=== PATIENT | male | born 1955 | race Caucasian/White ===

== ENCOUNTER 2017-01-10 12:21 | Emergency (ER) | payer OTHER ==
--- NOTE | 2017-01-10 12:52 | EDPHY ---
H & P Time Seen by Provider: 01/10/17 12:31 HPI/ROS: CHIEF COMPLAINT: Back pain HISTORY OF PRESENT ILLNESS: This 61-year-old man has been having intermittent bilateral foot pain for months and had an MRI by Dr. Burk on September 12 of last year. At that time he was seen to have mild spinal stenosis at L4- 5 as well as foraminal impingement on the right-sided L3-L4 level with a disc protrusion within the nerve foramen. Patient was lifting boxes to ship things to [place] to his daughter on a week ago and the next morning on Thursday felt like he had a knife sticking into his back on the right side. He saw his primary care physician this because of pain and was started on oral prednisone 40 mg a day as well as Flexeril and oxycodone. Patient's pain radiates down the front of his leg into his foot. Today he feels like he was having difficulty walking and getting dressed. He states that he feels weaker in the leg but can still feel his foot okay. REVIEW OF SYSTEMS: Abdomen: no vomiting, diarrhea, abdominal pain Musculoskeletal: HPI Skin: no rash Neuro: No incontinence Constitutional: no fever : no urinary symptoms A comprehensive 10 point review of systems is otherwise negative aside from elements mentioned in the history of present illness. PAST MEDICAL HISTORY: Polymyalgia rheumatica, bleeding ulcer, rheumatoid arthritis and neuropathy. Previous C5 through 7 ACDF. General Appearance: Alert and conversant, cooperative. Gastrointestinal: Abdomen is soft and non tender. No rebound or guarding and no pulsatile mass. Neurological: Alert and oriented x3. Normally conversant. 5/5 motor in both lower extremities. 5/5 extension of hallucis longus. Normal plantar flexion. Toes downgoing bilaterally. Patellar and ankle reflexes 1+ bilateral and symmetric. Straight leg raising negative bilaterally. Patient can stand on both toes and both heels. Normal sensation to light touch in the perineal area. No foot drop. Normal dorsiflexion. Ambulatory w/o antalgic gait. Skin: Warm and dry, no rashes. Musculoskeletal: No lumbar spine tenderness. Emergency Department course/MDM: Patient does not have objective neurologic deficit. Today he took 40 mg oral prednisone and a single 5 mg oxycodone. Consultation with his spine surgeon. 1342: Discussed in detail with his spine surgeon Dr. Burk. Includes but not limited to symptoms, physical exam and emergency department evaluation, MRI from August. She recommends continuing with steroids and muscle relaxants and pain medications. Office follow-up on Thursday. No surgical intervention and no repeat imaging. Discussion and plan discussed with the patient. He has at least prescription for 30 Percocet and muscle relaxant remaining. Will continue steroids and follow up on Thursday. He states he is comfortable with this plan Smoking Status: Never smoked Constitutional: Initial Vital Signs Temperature (C) 36.4 C 01/10/17 12:31 Heart Rate 88 01/10/17 12:31 Respiratory Rate 22 H 01/10/17 12:31 Blood Pressure 113/97 H 01/10/17 12:31 O2 Sat (%) 95 01/10/17 12:31 O2 Delivery Mode Room Air Allergies/Adverse Reactions: No Known Allergies Allergy (Verified 01/10/17 12:26) Home Medications: Medication Instructions Recorded Tamsulosin HCl [Flomax 0.4 MG (*)] 0.4 mg PO DAILY #6 cap 02/28/14 Esomeprazole Magnesium [Nexium] 20 mg PO BID 03/01/14 Herbals/Supplements -Info Only 1 ea PO DAILY 03/01/14 traMADol [Ultram 50 mg (*)] 100 mg PO BID PRN 03/01/14 Pregabalin [Lyrica 75mg (*)] 75 mg PO BID #0 cap 03/04/14 predniSONE 5 mg PO BID #0 tab 03/04/14 Allopurinol 01/10/17 Cyclobenzaprine 01/10/17 DULoxetine 01/10/17 FOLIC ACID 01/10/17 Methotrexate 01/10/17 Oxycodon-Acetaminophen 2.5-325 01/10/17 Pot Citrate-Citric Acid Packet 01/10/17 RAPAFLO 01/10/17 Medical Decision Making Differential Diagnosis: Differential considered including but not limited to lumbar radiculopathy, herniated disc, spinal stenosis, epidural abscess, multiple sclerosis. Consult/Admit Bed Type: [place] [id number] Departure - Departure Disposition: Home, Routine, Self-Care Clinical Impression: Lumbar radiculopathy, acute Back pain Qualifiers: Back pain location: low back pain Chronicity: acute Back pain laterality: right Sciatica presence: with sciatica Sciatica laterality: sciatica of right side Qualified Code(s): M54.41 - Lumbago with sciatica, right side Condition: Good Instructions: Lumbar Radiculopathy (ED) Additional Instructions: Continue medications as prescribed. Return for worsening or severe pain or weakness or incontinence. Please see your spine surgeon on Thursday morning. Call when the office opens for appointment and her office will be expecting you. Referrals: Hima Stanley MD [Primary Care Provider] - As per Instructions Faith Burk MD [Medical Doctor] - 01/12/17
[2017-01-10 13:57] VITALS: BP 130/88; PULSE 72; RESP 20; TEMP 98.2; O2SAT 98
== END 2017-01-10 14:00 | disposition home or self-care (01) ==
DX: M54.41 Lumbago with sciatica, right side (principal); M54.16 Radiculopathy, lumbar region

== ENCOUNTER → 2017-01-23 | Outpatient (CLI) | payer OTHER | LOC: BMCIMAGING 11:30 | PROVIDERS: ATTEND Internal Medicine | DX: J40 Bronchitis, not specified as acute or chronic (principal); R06.00 Dyspnea, unspecified ==

== ENCOUNTER 2017-02-02 19:13 | Observation (INO) | payer OTHER ==
[2017-02-02] MEDS ORDERED: KETOROLAC 30 MG/1 ML SDV IVP ONE (19:51)
[2017-02-02] MEDS ORDERED: ONDANSETRON 4 MG/2 ML VIAL IVP ONE (19:51)
[2017-02-02] MEDS ORDERED: NS 500 ML IV ONE (19:51)
[2017-02-02] MEDS ORDERED: HYDROmorphONE/DILAUDID 1 MG/ML SYR IVP ONE (19:51)
[2017-02-02] MEDS ORDERED: methylPREDNISolone SOD SUCC 125 MG/2 ML VIAL IVP ONE (19:52)
--- NOTE | 2017-02-02 19:55 | EDPHY ---
H & P Time Seen by Provider: 02/02/17 19:36 HPI/ROS: CHIEF COMPLAINT: Back pain HISTORY OF PRESENT ILLNESS: Patient is a 61-year-old male who presents to the emergency department with right lower back pain. He has been diagnosed previously with a disc herniation, spinal stenosis and sciatica. This episode has been going on for about 30 days. He has a scheduled injection on . His pain is worsened worsening him to the emergency department. This pain radiates to his right buttock. It does not extend down the leg. He denies incontinence of urine or stool. No fevers or chills. Patient feels as though his right lower extremity is slightly weaker than the left. No numbness or tingling. REVIEW OF SYSTEMS: My complete review of systems is negative except as mentioned in the HPI. Past Medical/Surgical History: Includes back pain, disc herniation, polymyalgia, th arthritis, peptic ulcer disease, neuropathy, Sjogren's syndrome, kidney stone Smoking Status: Never smoked Physical Exam: Vitals noted GENERAL: Well-appearing, in no acute distress, alert. HEENT: Eyes normal to inspection, normal pharynx, no signs of dehydration. NECK: No thyromegaly, no lymphadenopathy, supple. RESPIRATORY: Clear to auscultation bilaterally, no rales, rhonchi or wheezing. CVS: Regular rate and rhythm, no rubs, murmurs, or gallops. ABDOMEN: Soft, nontender, nondistended, no organomegaly. BACK: Normal to inspection, no CVA tenderness. No spinal tenderness to palpation. Negative leg raise bilaterally. SKIN: Normal color, no rash, warm, dry. No pallor. EXTREMITIES: No pedal edema, no calf tenderness, no Homans sign or cords, no joint swelling. NEURO/PSYCH: Alert and oriented, normal mood and affect, normal motor sensory exam. Constitutional: Initial Vital Signs Temperature (C) 37 C 02/02/17 19:16 Heart Rate 87 02/02/17 19:16 Respiratory Rate 18 02/02/17 19:16 Blood Pressure 152/92 H 02/02/17 19:16 O2 Sat (%) 94 02/02/17 19:16 O2 Delivery Mode Room Air O2 (L/minute) 2 Allergies/Adverse Reactions: No Known Allergies Allergy (Verified 02/02/17 19:21) Home Medications: Medication Instructions Recorded Esomeprazole Magnesium [Nexium] 20 mg PO BID 03/01/14 Herbals/Supplements -Info Only 1 ea PO DAILY 03/01/14 traMADol [Ultram 50 mg (*)] 100 mg PO BID PRN 03/01/14 Pregabalin [Lyrica 75mg (*)] 75 mg PO BID #0 cap 03/04/14 Allopurinol 01/10/17 Cyclobenzaprine 01/10/17 DULoxetine 01/10/17 FOLIC ACID 01/10/17 Methotrexate 01/10/17 Pot Citrate-Citric Acid Packet 01/10/17 RAPAFLO 01/10/17 Medical Decision Making ED Course/Re-evaluation: In the emergency department an IV was placed. Patient was given Dilaudid 0.5 mg IV for pain, Zofran 4 mg IV for nausea, Toradol 30 mg IV for pain, and Solu- Medrol 125 mg IV for pain. I rechecked the patient. He still continued to have back pain. It radiated down his right buttock to his right leg. She had no weakness or numbness on repeat exam. Patient was given Valium 5 mg IV. Because the patient has been given numerous pain medications and still has significant back pain he will be admitted for further treatment and observation. I discussed the case with the hospitalist service. Differential Diagnosis: My differential includes but is not limited to disc herniation, sciatica, low back strain, epidural abscess, epidural mass. I do not feel the patient is having a neuro surgical emergency. I doubt cauda equina syndrome. - Data Points Medications Given: Discontinued Medications Hydromorphone HCl (Dilaudid) 0.5 mg IVP EDNOW ONE Stop: 02/02/17 19:52 Last Admin: 02/02/17 20:32 Dose: 0.5 mg Sodium Chloride (Ns) 500 mls @ 0 mls/hr IV ONCE ONE PRN Reason: Wide Open Stop: 02/02/17 19:52 Last Admin: 02/02/17 20:33 Dose: 500 mls Ketorolac Tromethamine (Toradol) 30 mg IVP EDNOW ONE Stop: 02/02/17 19:52 Last Admin: 02/02/17 20:33 Dose: 30 mg Methylprednisolone Sodium Succinate (Solu-Medrol) 125 mg IVP EDNOW ONE Stop: 02/02/17 19:53 Last Admin: 02/02/17 20:33 Dose: 125 mg Ondansetron HCl (Zofran) 4 mg IVP EDNOW ONE Stop: 02/02/17 19:52 Last Admin: 02/02/17 20:34 Dose: 4 mg Departure - Departure Disposition: [facility] Inpatient Acute Clinical Impression: Back pain Qualifiers: Back pain location: low back pain Chronicity: acute Back pain laterality: right Sciatica presence: with sciatica Sciatica laterality: sciatica of right side Qualified Code(s): M54.41 - Lumbago with sciatica, right side Condition: Good Referrals: Hima Stanley MD [Primary Care Provider] - As per Instructions
[2017-02-02] MEDS ORDERED: DIAZEPAM 10 MG/2 ML SYR ONE (21:21)
[2017-02-02] MEDS ORDERED: DIAZEPAM 10 MG/2 ML SYR IVP ONE (21:31)
[2017-02-02 21:48] LABS: ANION GAP 9 mEq/L (8-16); CALCIUM 9.9 mg/dL (8.5-10.4); CARBON DIOXIDE 27 mEq/l (22-31); CHLORIDE 102 mEq/L (97-110); CREATININE 1.1 mg/dL (0.7-1.3); GLOMERULAR FILTRATION RATE > 60; GLUCOSE 89 mg/dL (70-100); POTASSIUM 4.5 mEq/L (3.5-5.2); SODIUM 138 mEq/L (134-144)
[2017-02-02 21:49] LABS: % IMMATURE GRANULYOCYTES 0.2 % (0.0-1.1); ABSOLUTE IMMATURE GRANULOCYTES 0.02 10^3/uL (0.00-0.10); ADD DIFF? NO; ADD MORPH? NO; ADD SCAN? NO; ATYPICAL LYMPHOCYTE FLAG 0 (0-99); FRAGMENT RBC FLAG 0 (0-99); HEMATOCRIT 44.2 % (40.0-51.0); HEMOGLOBIN 14.8 g/dL (13.7-17.5); LEFT SHIFT FLG 0 (0-99); LIPEMIA HEMOLYSIS FLAG 80 (0-99); MEAN CELL HEMOGLOBIN 30.6 pg (27.9-34.1); MEAN CELL HEMOGLOBIN CONCENTR. 33.5 g/dL (32.4-36.7); MEAN CELL VOLUME 91.3 fL (81.5-99.8); MEAN PLATELET VOLUME 10.1 fL (8.7-11.7); PLATELET CLUMPS FLAG 0 (0-99); PLATELET COUNT 435 10^3/uL (150-400); RED BLOOD CELL COUNT 4.84 10^6/uL (4.40-6.38); RED CELL DISTRIBUTION WIDTH 15.9 % (11.5-15.2)
[2017-02-02] MEDS ORDERED: ONDANSETRON DISINTEGRATING 4 MG TAB PO PRN (23:09)
[2017-02-02] MEDS ORDERED: ONDANSETRON 4 MG/2 ML VIAL IVP PRN (23:09)
[2017-02-02] MEDS ORDERED: DIAZEPAM 5 MG TAB PO PRN (23:10)
[2017-02-02] MEDS ORDERED: HYDROmorphONE/DILAUDID 1 MG/ML SYR IVP PRN (23:10)
[2017-02-02] MEDS: ACETAMINOPHEN 500 MG TAB PO SCH (23:32)
[2017-02-02] MEDS: oxyCODONE IR 5 MG TAB PO PRN (23:34)
[2017-02-03] MEDS: SENNOSIDES 17.6 MG/10 ML UDL PO SCH ×2 (00:02→08:33)
--- NOTE | 2017-02-03 00:23 | GHP ---
[f rep st] HISTORY AND PHYSICAL DATE OF ADMISSION: 02/02/2017 CHIEF COMPLAINT: Intractable back pain. HISTORY OF PRESENT ILLNESS: The patient is a 61-year-old male with a history sciatica, bulged disk and multilevel lumbar degenerative disk disease at L2-L3 and L4-L5. He is followed by Dr. Dailey and had MRI 01/28/17 that showed L3 -4 annular bulge to the right causing mild central canal stenosis and moderate- severe right foraminal narrowing. Has been doing physical therapy for the last 3 weeks and has noted weakness of right leg. Was scheduled for a steroid injection at [facility] on this ; however, pain became so severe today that he presented to the emergency room. Pain is right-sided in the lumbar region, stabbing in nature, that radiates to his thigh. Pain in his calf is more of a burning sensation and itching. He denies any bowel or bladder incontinence. REVIEW OF SYSTEMS: I completed a 10-point review of systems, negative except as noted in HPI. PAST MEDICAL HISTORY: 1. L2 through L3-4 degenerative disk disease. 2. L4-L5 stenosis. 3. Rheumatoid arthritis. 4. Neuropathy. PAST SURGICAL HISTORY: 1. C5-C7 fusion in 2009. 2. Right rotator cuff surgery x2. 3. Two kidney stones. FAMILY HISTORY: Father with heart disease. SOCIAL HISTORY: Lives in [place]. 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 No illicit tobacco or alcohol. ALLERGIES: None. MEDICATIONS: 1. Potassium citrate 10 mEq p.o. three times daily. 2. Rapaflo 8 mg daily. 3. Voltaren 50 mg daily. 4. Lyrica 400 mg daily. 5. Hydrocodone 7.5-325 q.6 hours p.r.n. 6. Flexeril 10 mg three times daily. 7. Allopurinol 200 mg daily. 8. Cymbalta 30 daily. 9. Nexium 40 mg twice daily. 10. Cymbalta 60 daily. 11. Methotrexate 12.5 mg p.o. Mondays. 12. Folic acid 0.4 mg daily. 13. Tramadol 100 mg twice daily p.r.n.. PHYSICAL EXAMINATION: VITAL SIGNS: Temperature 36.9, blood pressure 126/86, heart rate is 80, respiration 14, 92% on 2 L. GENERAL: The patient is lying in bed in no acute distress. HEENT: PERRLA, EOMI, oropharynx clear. CV: Regular rate and rhythm. No murmurs, gallops, or rubs. LUNGS: Clear to auscultation bilaterally. ABDOMEN: Soft, nontender, nondistended. Positive bowel sounds. : No suprapubic or CVA tenderness. MUSCULOSKELETAL: No spinal tenderness to palpation. Negative straight leg test bilaterally. 4/5 hip flexion on the right, 5/5 on the left. NEURO: 2 through 12 intact. Decreased sensation to touch of his right lower extremity. PSYCH: Alert and oriented x3. LABORATORY DATA: WBC is 8.9, hemoglobin 14, hematocrit 40, platelets 435, sodium 138, potassium 4.5, chloride 102, carbon dioxide 27, BUN 31, creatinine 1.1 which is his baseline. Glucose 89. IMAGING: Lumbar spine MRI on 01/28/2017: Multilevel degenerative disk disease and joint disease of the lumbar spine. Levels of more significant encroachment are on the left at L2-L3 and on the right at L3-L4 and L4-L5. L4-L5 demonstrates a broad based annular bulge and central protrusion with annular tear. Moderate facet arthropathy seen bilaterally. There is causing moderate central spinal canal and bilateral recess narrowing. ASSESSMENT AND PLAN: 1. Acute on chronic back pain: due to central canal stenosis, foraminal narrowing. Admit for acute pain control. Schedule Tylenol, p.r.n. oxycodone and IV Dilaudid if needed. Valium. Contact Neurosurgery in the morning. Could consider steroid injection here rather than later this week. Patient denies any flag signs including bladder incontinence. 2. Rheumatoid arthritis: Continue home medications. 3. Neuropathy: Continue home medications. 4. Mild chronic kidney disease. Creatinine is 1.2 which is his baseline. 5. Diet: Regular. 6. DVT prophylaxis: SCDs. DISPOSITION: Patient warrants observation and admission given acute on chronic intractable back pain requiring IV opioids and neurosurgical evaluation. /[id number]/MODL MTDD
[2017-02-03] MEDS: oxyCODONE IR 5 MG TAB PO PRN ×3 (04:22→12:04)
[2017-02-03 04:29] LABS: COLOR YELLOW; LEUKOCYTE ESTERASE,URINE NEGATIVE (NEGATIVE); NITRITE,URINE NEGATIVE (NEGATIVE)
[2017-02-03 08:10] VITALS: BP 103/63; PULSE 90; RESP 14; TEMP 98.1; O2SAT 91
[2017-02-03] MEDS: DULoxetine 30 MG CAP PO SCH (08:25)
[2017-02-03] MEDS: ACETAMINOPHEN 500 MG TAB PO SCH (08:33)
[2017-02-03] MEDS ORDERED: PANTOPRAZOLE SODIUM 40 MG TAB PO SCH (09:00)
[2017-02-03] MEDS ORDERED: ALLOPURINOL 100 MG TAB PO SCH ×2 (09:00→21:00)
[2017-02-03] MEDS ORDERED: DULoxetine 60 MG CAP PO SCH (09:00)
[2017-02-03] MEDS ORDERED: PREGABALIN 100 MG CAP PO SCH (09:00)
[2017-02-03] MEDS ORDERED: FOLIC ACID 1 MG TAB PO SCH (09:00)
[2017-02-03] MEDS ORDERED: METHOTREXATE 2.5 MG TAB PO SCH (09:30)
--- NOTE | 2017-02-03 16:15 | GDS ---
[f rep st] DISCHARGE SUMMARY DISCHARGE DIAGNOSES: 1. Acute on chronic low back pain and radiculopathy. 2. Rheumatoid arthritis. 3. Neuropathy. 4. Mild chronic kidney disease. HOSPITAL COURSE AND STAY BY PROBLEM: 1. Acute on chronic low back pain: Today the patient presented to the hospital with severe acute o n chronic low back pain to the point where he was unable to care for himself. He was treated with I V Dilaudid and Valium. On the morning of hospital day #1, the patient's pain has subsided. He michele es any saddle anesthesia. He denies any focal neurologic deficits. I did offer evaluation for an i npatient epidural steroid injection. However the patient tells me that he has appointment scheduled at [facility] tomorrow and feels like his pain is controlled well enough to make his appointment to [facility] for [facility] outpatient procedure. 2. The patient denies any bowel or bladder incontinence. PHYSICAL EXAM: VITAL SIGNS: On day of discharge, blood pressure 103/63, pulse of 90, respiratory r ate 14, O2 saturation 91% on 2 L. Temperature afebrile. NEURO: There is no saddle anesthesia. Mu scle strength 5/5 bilateral lower extremity flexion and extension at the knee and at the foot. Ther e is no foot drop. DISCHARGE MEDICATIONS: Please refer to discharge medication reconciliation in [facility] for full det ails. Below is a preliminary list. New medications on hospital discharge; 1. Dilaudid 2-4 mg p.o. q.4 hours p.r.n. breakthrough pain. Prescription for #10 were given, Valiu m 5 mg p.o. q.6 hours p.r.n. muscle spasm. Prescription for #5 were given. DISCHARGE INSTRUCTIONS: The patient will be discharged from the hospital where he will follow up [facility] tomorrow. He was instructed not drive or operate heavy machinery while under the infl uence of narcotic pain medications or benzodiazepines. He should also follow up with his spine surg jana, Dr. Burk. /[id number]/MODL
[2017-02-09] MEDS ORDERED: METHOTREXATE 2.5 MG TAB PO SCH (09:00)
== END 2017-02-03 12:28 | disposition home or self-care (01) ==
LOC: F3N 23:01
PROVIDERS: ADMIT Internal Medicine; ATTEND Family Medicine
DX: M54.41 Lumbago with sciatica, right side (principal); M51.16 Intervertebral disc disorders with radiculopathy, lumbar region; N18.9 Chronic kidney disease, unspecified
CPT/HCPCS: G0378 ×2; 96374; J1170; J1885; J2405

== ENCOUNTER 2017-03-15 17:33 | Inpatient (IN) | payer OTHER ==
--- NOTE | 2017-03-15 18:18 | EDPHY ---
H & P Stated Complaint: post laminotomy 02/17 fever/chills/pus draining from site Time Seen by Provider: 03/15/17 18:16 HPI/ROS: CHIEF COMPLAINT: Drainage from surgical site. HISTORY OF PRESENT ILLNESS: This patient is a 61 year old male who underwent laminotomy on 02/17/17 who presents complaining of drainage from his surgical site. He states he has been feeling worse every day for the past five days. Yesterday, he developed a fever. Today, he reports he visited urgent care in [place], and it was recommended that he come to the emergency department. He states his last food or drink was around noon today. He reports pain in his right leg wrapping around his knee and extending down the medial aspect of his lower leg. This is similar to the pain that he had preoperatively. He is not aware of new weakness. He has not had bowel or bladder problems. REVIEW OF SYSTEMS: A ten point review of systems was performed and is negative with the exception of the items mentioned in the HPI. Source: Patient Exam Limitations: No limitations - Personal History Current Tetanus/Diphtheria Vaccine: Unsure - Medical/Surgical History PMH: 1. L2 through L3-4 degenerative disc disease 2. L4-L5 stenosis 3. Rheumatoid arthritis 4. Neuropathy 5. Laminotomy on February 17, 2017 6. Ureterolithiasis 7. 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 Lives in [place]. Nonsmoker. - Physical Exam Exam: General Appearance: Alert. Vital signs reviewed. Blood pressure 98/72 and heart rate 122 at triage. Temperature 37.2. Eyes: Pupils equal and round, no conjunctival injection, no discharge. Anicteric. ENT, Mouth: Mucous membranes are moist, no oropharyngeal erythema or edema. Neck: No lymphadenopathy, supple. Respiratory: Lungs are clear to auscultation; no wheezes, rales, or rhonchi. Cardiovascular: Tachycardic; no murmur, rub, or gallop. Gastrointestinal: Abdomen is soft and nontender, no masses or organomegaly, bowel sounds normal. Skin: Warm and dry, no rashes on exposed skin, normal color. Back: 5cm midline lumbar incision. Purulent drainage expressed from superior aspect. Minimal surrounding erythema at the superior aspect of the incision, the skin of his back is diffusely warm. Extremities: No lower extremity edema, no calf tenderness or swelling. Neurological: Alert and oriented. Moving all four extremities easily and equally. Strength is 5 over 5 bilaterally with testing of all major motor groups in the lower extremities. Sensation is intact to light touch in lower extremities. Deep tendon reflexes are 0+ in the biceps and knees bilaterally. Psychiatric: Normal affect. Constitutional: Initial Vital Signs Temperature (C) 37.2 C 03/15/17 17:53 Heart Rate 122 H 03/15/17 17:53 Respiratory Rate 20 03/15/17 17:53 Blood Pressure 98/77 L 03/15/17 17:53 O2 Sat (%) 95 03/15/17 17:53 O2 Delivery Mode Room Air Allergies/Adverse Reactions: No Known Allergies Allergy (Verified 03/15/17 17:52) Home Medications: Medication Instructions Recorded Allopurinol [Allopurinol 100 MG 100 mg PO BID 01/10/17 (*)] Cyclobenzaprine [Flexeril 10 MG 10 mg PO TID PRN MDD muscle spasms 01/10/17 (*)] DULoxetine [Cymbalta 60 MG (*)] 60 mg PO DAILY 01/10/17 Folic Acid 0.4 mg PO DAILY 01/10/17 Methotrexate Sodium [Rheumatrex] 12.5 mg PO TU 01/10/17 Potassium Citrate [Potassium 15 meq PO TID 01/10/17 Citrate ER] Silodosin [RAPAFLO] 8 mg PO DAILY 01/10/17 DULoxetine [Cymbalta 30 MG (*)] 30 mg PO DAILY 02/02/17 Esomeprazole Mag Trihydrate 40 mg PO BID 02/02/17 [Nexium] Diazepam [Valium 5 MG (*)] 5 mg PO Q6HRS PRN #5 tab 02/03/17 Pregabalin [Lyrica] 300 mg PO BID 03/15/17 Medical Decision Making - Diagnostics Imaging Results: Imaging Impressions Chest X-Ray 03/15/17 18:24 Impression: Left basilar atelectasis. Otherwise clear lungs. ED Course/Re-evaluation: This patient is a 61 year old male who underwent spinal surgery 02/17/17 presenting with fever, tachycardia, and relative hypotension and purulent drainage from his surgical incision. He received 2 L of IV normal saline. His blood pressure improved to 121/78. He remained tachycardic with heart rates of 112-114. He did not have fever. White blood cell count over 19,000 with a left shift. Lactic acid normal. He met criteria for sepsis, but not for severe sepsis. 19:[address] Burk regarding the patient. She will come to examine the patient in [address] 21:00 Dr. Burk assessed patient. He will go directly to the OR. Differential Diagnosis: Fever in adults including but not limited to leg wound infection, pneumonia, urinary tract infection, viral syndrome, and influenza. - Data Points Laboratory Results: Laboratory Results 03/15/17 18:30 03/15/17 18:30 03/15/17 03/15/17 03/15/17 18:30 18:30 18:30 WBC 19.47 10^3/uL H 10^3/uL (3.80-9.50) RBC 4.41 10^6/uL 10^6/uL (4.40-6.38) Hgb 13.6 g/dL L g/dL (13.7-17.5) Hct 40.8 % % (40.0-51.0) MCV 92.5 fL fL (81.5-99.8) MCH 30.8 pg pg (27.9-34.1) MCHC 33.3 g/dL g/dL (32.4-36.7) RDW 17.1 % H % (11.5-15.2) Plt Count 347 10^3/uL 10^3/uL (150-400) MPV 10.1 fL fL (8.7-11.7) Neut % (Auto) 86.6 % H % (39.3-74.2) Lymph % (Auto) 6.7 % L % (15.0-45.0) Toombs % (Auto) 5.2 % % (4.5-13.0) Eos % (Auto) 0.6 % % (0.6-7.6) Baso % (Auto) 0.3 % % (0.3-1.7) Nucleat RBC Rel Count 0.0 % % (0.0-0.2) Absolute Neuts (auto) 16.88 10^3/uL H 10^3/uL (1.70-6.50) Absolute Lymphs (auto) 1.30 10^3/uL 10^3/uL (1.00-3.00) Absolute Monos (auto) 1.01 10^3/uL H 10^3/uL (0.30-0.80) Absolute Eos (auto) 0.11 10^3/uL 10^3/uL (0.03-0.40) Absolute Basos (auto) 0.06 10^3/uL 10^3/uL (0.02-0.10) Absolute Nucleated RBC 0.00 10^3/uL 10^3/uL (0-0.01) Immature Gran % 0.6 % % (0.0-1.1) Immature Gran # 0.11 10^3/uL H 10^3/uL (0.00-0.10) PT 13.9 SEC SEC (12.0-15.0) INR 1.08 (0.83-1.16) APTT 33.1 SEC SEC (23.0-38.0) VBG Lactic Acid Sodium 142 mEq/L mEq/L (134-144) Potassium 4.1 mEq/L mEq/L (3.5-5.2) Chloride 105 mEq/L mEq/L (97-110) Carbon Dioxide 25 mEq/l mEq/l (22-31) Anion Gap 12 mEq/L mEq/L (8-16) BUN 27 mg/dL H mg/dL (7-23) Creatinine 1.1 mg/dL mg/dL (0.7-1.3) Estimated GFR > 60 Glucose 102 mg/dL H mg/dL (70-100) Calcium 9.3 mg/dL mg/dL (8.5-10.4) Total Bilirubin 0.7 mg/dL mg/dL (0.1-1.4) 03/15/17 18:30 WBC RBC Hgb Hct MCV MCH MCHC RDW Plt Count MPV Neut % (Auto) Lymph % (Auto) Toombs % (Auto) Eos % (Auto) Baso % (Auto) Nucleat RBC Rel Count Absolute Neuts (auto) Absolute Lymphs (auto) Absolute Monos (auto) Absolute Eos (auto) Absolute Basos (auto) Absolute Nucleated RBC Immature Gran % Immature Gran # PT INR APTT VBG Lactic Acid 1.5 mmol/L mmol/L (0.7-2.1) Sodium Potassium Chloride Carbon Dioxide Anion Gap BUN Creatinine Estimated GFR Glucose Calcium Total Bilirubin Medications Given: Discontinued Medications Sodium Chloride (Ns) 1,000 mls @ 0 mls/hr IV ONCE ONE PRN Reason: Wide Open Stop: 03/15/17 18:31 Last Admin: 03/15/17 18:30 Dose: 1,000 mls Sodium Chloride (Ns) 1,000 mls @ 0 mls/hr IV ONCE ONE PRN Reason: Wide Open Stop: 03/15/17 19:01 Last Admin: 03/15/17 19:00 Dose: 1,000 mls Departure - Departure Disposition: [facility] Inpatient Acute Clinical Impression: Wound infection after surgery Qualifiers: Encounter type: initial encounter Qualified Code(s): T81.4XXA - Infection following a procedure, initial encounter Condition: Fair Report Scribed for: Nichole Dave Report Scribed by: Ninfa Romero Date of Report: 03/15/17 Time of Report: 18:31 Physician Review and Approval Statement: 03/15/17 18:18 Portions of this note were transcribed by the medical recruiter. I, Dr. Nichole Dave, personally performed the history, physical exam, and medical decision- making; and confirmed the accuracy of the information in the transcribed note.
[2017-03-15] MEDS ORDERED: NS 1,000 ML IV ONE ×2 (18:30→19:00)
[2017-03-15 18:44] LABS: % IMMATURE GRANULYOCYTES 0.6 % (0.0-1.1); ABSOLUTE IMMATURE GRANULOCYTES 0.11 10^3/uL (0.00-0.10); ADD DIFF? NO; ADD MORPH? NO; ADD SCAN? NO; ATYPICAL LYMPHOCYTE FLAG 0 (0-99); FRAGMENT RBC FLAG 0 (0-99); HEMATOCRIT 40.8 % (40.0-51.0); HEMOGLOBIN 13.6 g/dL (13.7-17.5); LEFT SHIFT FLG 0 (0-99); LIPEMIA HEMOLYSIS FLAG 80 (0-99); MEAN CELL HEMOGLOBIN 30.8 pg (27.9-34.1); MEAN CELL HEMOGLOBIN CONCENTR. 33.3 g/dL (32.4-36.7); MEAN CELL VOLUME 92.5 fL (81.5-99.8); MEAN PLATELET VOLUME 10.1 fL (8.7-11.7); PLATELET CLUMPS FLAG 10 (0-99); PLATELET COUNT 347 10^3/uL (150-400); RED BLOOD CELL COUNT 4.41 10^6/uL (4.40-6.38); RED CELL DISTRIBUTION WIDTH 17.1 % (11.5-15.2)
[2017-03-15 18:53] LABS: INR 1.08 (0.83-1.16); PROTIME(PATIENT) 13.9 SEC (12.0-15.0)
[2017-03-15 18:54] LABS: ANION GAP 12 mEq/L (8-16); APTT 33.1 SEC (23.0-38.0); BILIRUBIN,TOTAL 0.7 mg/dL (0.1-1.4); CALCIUM 9.3 mg/dL (8.5-10.4); CARBON DIOXIDE 25 mEq/l (22-31); CHLORIDE 105 mEq/L (97-110); CREATININE 1.1 mg/dL (0.7-1.3); GLOMERULAR FILTRATION RATE > 60; GLUCOSE 102 mg/dL (70-100); POTASSIUM 4.1 mEq/L (3.5-5.2); SODIUM 142 mEq/L (134-144)
--- NOTE | 2017-03-15 21:53 | GHP ---
[f rep st] PREOP HISTORY AND PHYSICAL DATE OF ADMISSION: 03/15/2017 HISTORY: The patient is a pleasant 61-year-old gentleman who is 4 weeks status post an L2-L5 latrell ctomy for spinal stenosis and severe bilateral lower extremity radiculopathy. The patient was doing well and was seen in the office this past week. However, 2 days ago, the patient developed increas ing wound pain, fevers, nausea and drainage from his lumbar wound. He went to the urgent care today and then was transferred to the emergency room today. He has been n.p.o. since noon. REVIEW OF SYSTEMS: 10-point review is negative with the exception of the aforementioned in the hist ory. PAST MEDICAL HISTORY: Sjogren disease, rheumatoid arthritis, history of nephrolithiasis, small fibe r neuropathy. PAST SURGICAL HISTORY: Significant for the aforementioned L2-L5 laminectomy, right rotator cuff rep air x2. SOCIAL HISTORY: Negative for tobacco. The patient uses alcohol occasionally. ALLERGIES: None. MEDICATIONS: Include allopurinol, Cymbalta, methotrexate, Rapaflo, Nexium, Lyrica, Dilaudid and Nickie ium. PHYSICAL EXAMINATION: GENERAL: The patient is a well-developed, well-nourished, very pleasant gent anil to interact with. He is alert and oriented x3. He feels warm. CARDIAC: Regular rate and rh ythm without detectable murmur, rub, or gallop. LUNGS: Clear to auscultation. He has no wheezing or rhonchi. NEUROLOGIC: Exam shows strength of bilateral lower extremities to be 5/5 throughout. His lumbar wound shows about a 5 mm opening of the wound proximally. There is purulence and the wou nd is edematous, erythematous and very tender to palpation. In contrast to 4 days ago when the paulette ent was seen in the office, the wound was completely fine and nontender. There is a fair amount of purulence on palpation and the wound is exceedingly tender to palpation. LABORATORY DATA: White count is 19.47. Hematocrit is 40.8. Urinalysis has been sent and chest x-r ay has been ordered as well. IMPRESSION: 1. Four weeks status post L2-L5 laminectomy for spinal stenosis and neurogenic claudication. 2. Postoperative wound infection. PLAN: The patient has been n.p.o. as he has been nauseated and not interested in eating since noon today. His vital signs show significant tachycardia and hypotension. Blood cultures have been draw n. I think the patient is in early stages of sepsis. He requires an incision, irrigation and debri shashi of the lumbar wound on an urgent basis. The patient's questions have been answered thoroughl y. He agrees to the aforementioned recommended surgery. He understands he will be in the hospital postoperatively for a minimum of 3 to 4 days. Copy requested to: Presurgery testing [facility] /[id number]/MODL
[2017-03-15] MEDS ORDERED: BACITRACIN 50,000 UNITS/10 ML SYR IRR ONE (22:11)
[2017-03-15 22:12] LABS: COLOR YELLOW; LEUKOCYTE ESTERASE,URINE NEGATIVE (NEGATIVE); NITRITE,URINE NEGATIVE (NEGATIVE)
[2017-03-15] MEDS ORDERED: BUPIVACAINE/EPI 0.25% 30 ML SDV ONE (22:13)
[2017-03-15] MEDS ORDERED: BUPIVACAINE 0.5% 30 ML SDV ONE (22:13)
[2017-03-15] MEDS ORDERED: POLYMYXIN B SULFATE 500,000 UNIT/10 ML SYR IRR ONE (22:14)
[2017-03-15] MEDS ORDERED: THROMBIN (BOVINE) 5,000 UNIT VIAL TP ONE (22:15)
[2017-03-15 22:19] LABS: MUCUS TRACE /lpf (NONE-1+)
[2017-03-15] MEDS ORDERED: MIDAZOLAM 2 MG/2 ML VIAL ONE (22:31)
[2017-03-15] MEDS ORDERED: ONDANSETRON 4 MG/2 ML VIAL IVP PRN (22:33)
[2017-03-15] MEDS ORDERED: PROCHLORPERAZINE MALEATE 10 MG TAB PO PRN (22:33)
[2017-03-15] MEDS ORDERED: diphenhydrAMINE 25 MG CAP PO PRN (22:33)
[2017-03-15] MEDS ORDERED: HYDROmorphONE/DILAUDID 1 MG/ML SYR IVP PRN (22:33)
[2017-03-15] MEDS ORDERED: ACETAMINOPHEN 325 MG TAB PO PRN (22:33)
[2017-03-15] MEDS ORDERED: LACTULOSE 20 GM/30 ML UDCUP PO PRN (22:33)
[2017-03-15] MEDS ORDERED: BISACODYL 10 MG SUPP PR PRN (22:33)
[2017-03-15] MEDS ORDERED: POLYETHYLENE GLYCOL 3350 17 GM PKT PO PRN (22:33)
[2017-03-15] MEDS ORDERED: ONDANSETRON DISINTEGRATING 4 MG TAB PO PRN (22:33)
[2017-03-15] MEDS ORDERED: DIAZEPAM 10 MG/2 ML SYR IVP PRN (22:33)
[2017-03-15] MEDS ORDERED: OXYCODONE/APAP 5/325 TAB PO PRN (22:33)
[2017-03-15] MEDS ORDERED: DIAZEPAM 5 MG TAB PO PRN (22:33)
[2017-03-15] MEDS ORDERED: TEMAZEPAM 15 MG CAP PO PRN (22:33)
[2017-03-15] MEDS ORDERED: MAGNESIUM HYDROXIDE 30 ML UDCUP PO PRN (22:33)
[2017-03-15] MEDS ORDERED: fentaNYL 100 MCG/2 ML INJ ONE ×3 (22:35)
[2017-03-15] MEDS ORDERED: PROPOFOL 200 MG/20 ML VIAL ONE (22:35)
[2017-03-15] MEDS ORDERED: DEXAMETHASONE 4 MG/ML VIAL ONE (22:36)
[2017-03-15] MEDS ORDERED: ONDANSETRON 4 MG/2 ML VIAL ONE (22:36)
[2017-03-15] MEDS ORDERED: ROCURONIUM 50 MG/5 ML VIAL ONE (22:37)
[2017-03-15] MEDS ORDERED: KETOROLAC 30 MG/1 ML SDV ONE (22:37)
[2017-03-15] MEDS ORDERED: LIDOCAINE 2% 5 ML SDV ONE (22:37)
[2017-03-15] MEDS ORDERED: VANCOMYCIN 1 GM VIAL ONE (22:56)
[2017-03-15] MEDS ORDERED: PHENYLEPHRINE HCL 100 MCG/ML SYR ONE ×2 (23:01→23:32)
[2017-03-15] MEDS ORDERED: VANCOMYCIN HCL/NORMAL SALINE 250 ML IV ONE (23:30)
[2017-03-15] MEDS ORDERED: NEOSTIGMINE METHYLSULFATE 5 MG/5 ML SYR ONE (23:42)
[2017-03-15] MEDS ORDERED: GLYCOPYRROLATE 0.2 MG/1 ML VIAL ONE ×2 (23:43→23:44)
--- NOTE | 2017-03-16 00:17 | POSTOPPROG ---
Post Op Note Date of Operation: 03/16/17 Surgeon: Faith Burk End Touching Machine Operator: Yong Tarango SA Anesthesiologist: DO Bebe Anesthesia: GET(General Endotracheal) Pre-op Diagnosis: Lumbar wound infection Post-op Diagnosis: same Indication: early sepsis and lumbar wound infection Procedure: I and D lumbar wound & evacuation lumbar epidural abscess Findings: L2-3 epidural abscess Inf/Abcess present in the surg proc area at time of surgery?: Yes Depth: Deep Incisional (Fascial) EBL: 100 cc Total fluids administered: 1500 cc Complications: none. Drains: Jamar Palmer Specimen(s): cxs superficial and deep
[2017-03-16] MEDS ORDERED: fentaNYL 100 MCG/2 ML INJ ONE (00:45)
[2017-03-16] MEDS: D5W 1/2 NS W/ 20 KCl/L 1,000 ML IV SCH ×2 (02:06→17:38)
[2017-03-16] MEDS: HYDROCODONE/APAP 10/325 TAB PO PRN ×4 (02:56→21:38)
[2017-03-16] MEDS: PANTOPRAZOLE SODIUM 40 MG TAB PO SCH ×2 (08:15→21:37)
[2017-03-16] MEDS: DULoxetine 30 MG CAP PO SCH (08:15)
[2017-03-16] MEDS: morphINE SR 15 MG TAB PO SCH ×2 (08:15→21:37)
[2017-03-16] MEDS: ALLOPURINOL 100 MG TAB PO SCH ×2 (08:15→21:37)
[2017-03-16] MEDS: DULoxetine 60 MG CAP PO SCH (08:15)
[2017-03-16] MEDS: FOLIC ACID 1 MG TAB PO SCH (08:16)
[2017-03-16] MEDS: SENNOSIDES/DOCUSATE SODIUM TAB PO SCH ×2 (08:16→21:38)
[2017-03-16] MEDS: POTASSIUM CITRATE 15 MEQ PO SCH ×4 (08:17→21:40)
[2017-03-16] MEDS ORDERED: FAMOTIDINE 20 MG/NACL 50 ML IV SCH (09:00)
[2017-03-16] MEDS: PREGABALIN 150 MG CAP PO SCH ×2 (09:53→21:52)
[2017-03-16] MEDS ORDERED: VANCOMYCIN 1.5 GM in D5W 250 ML IV SCH (11:00)
[2017-03-16 13:24] LABS: HEMATOCRIT 36.9 % (40.0-51.0)
--- NOTE | 2017-03-16 14:03 | GCON ---
[f rep st] CONSULTATION INFECTIOUS DISEASE CONSULT. DATE OF CONSULTATION: 03/16/2017 REFERRING PHYSICIAN: Faith Dailey MD REASON FOR CONSULT: To assist in the management of this 61-year-old male with postoperative back infection. HISTORY OF PRESENT ILLNESS: The patient is a very pleasant 61-year-old gentleman, whose previous medical history is notable for the followin. Sjogren disease. 2. Rheumatoid arthritis, both this and the above followed by Dr. Eric Powers. The patient states that he was on daily prednisone at a low dose up until late September. He is not taking biologics, and has been maintained on methotrexate 12.5 mg per week. 3. History of nephrolithiasis. 4. Small fiber neuropathy, particularly of his left lower extremity. Regarding his present issues, the patient underwent an L2-L5 laminectomy on February [address] Burk for severe spinal stenosis and bilateral lower extremity radiculopathy. This was uncomplicated. The patient states that he was feeling reasonably well, perhaps 30% to 50% of his usual, however. He saw Dr. Burk in clinic last Thursday and was feeling well without evidence of infection. He does tell me though that Dr. Burk noted a spot of blood on his shirt at the site of his wound. Later that day, the patient states he took his shirt off and noticed some yellow material on his shirt. The next day, he states that it drained quite a bit, and over the past 48 hours he developed tactile fevers and rigors. The patient also felt nauseated with severe back pain that was different than his usual pain. The patient presented to [facility] yesterday afternoon, where he was febrile to 37.2. He was evaluated by Dr. Burk, who noted purulent drainage coming from the lumbar incision. No imaging was performed, and the patient was taken directly to the operating room for incision and drainage. Operative notes disclosed that the patient had a lumbar epidural abscess at L2- L3, that was evacuated and washed out. Gram stain from the purulence is showing 1+ gram-positive cocci in clusters, and culture is pending. Blood cultures are also pending. The patient was started on vancomycin, and I am now asked to assist in his management. In speaking with the patient today, he continues to have some low back discomfort, but is no longer having rigors. He is disappointed about his infection. He tells me that the lula were removed on March 03, and he stopped wearing a bandage over the incision for the past 7 to 10 days. He is wondering whether the back brace could have rubbed up against the incision, causing it to open up. He denies any history of MRSA. PREVIOUS MEDICAL HISTORY: As outlined above. PAST SURGICAL HISTORY: History of C5-C7 fusion with titanium in [place] [address] Burk. ALLERGIES: No known drug allergies. MEDICATIONS: Presently include: Vancomycin 0.5 g IV q.12 hours, allopurinol 100 mg p.o. twice daily, Valium, folate, Dilaudid, Compazine, morphine, Zofran, Cymbalta 90 mg, Rapaflo 8 mg daily, methotrexate 12.5 mg every Thursday. 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 He lives here in [place] with his . He has 2 dogs. The dogs have not been in contact with his wound. The patient denies any water exposure other than his shower. Denies alcohol or any recent travel. No tobacco or any other illicit substances. FAMILY HISTORY: Father with prostate cancer. REVIEW OF SYSTEMS: As outlined above. Otherwise 10 systems are reviewed and are negative. Notably, the patient denied any bowel or bladder problems, but did have discomfort down his legs, mostly on the right side. PHYSICAL EXAM: VITAL SIGNS: T-current 36.6; T-max 37.2, heart rate 60, blood pressure 112/76, 98% on 2 L. GENERAL: Well-nourished, well-developed gentleman , looks younger than stated age. Lying in bed, no apparent distress. HEENT: Atraumatic, normocephalic. Pupils equal, round, reactive to light. Extraocular movements are intact. No conjunctival injection, icterus or petechiae. Mucous membranes moist. No oral lesions noted. Dentition is in excellent repair. No thyromegaly or palpable thyroid nodules. CARDIOVASCULAR: S1, S2. No rubs, gallops or murmurs. LUNGS: Clear to auscultation anterolaterally with no increased respiratory effort, rales, rhonchi or wheeze. ABDOMEN: Soft. No organomegaly or tenderness to palpation. BACK: I did not take off the patient's primary surgical dressing. EXTREMITIES: No muscle belly tenderness. No evidence of arthritis that I could see. SKIN: Has a few ecchymoses on his forearms, otherwise no obvious rashes. EXTREMITIES: No clubbing, cyanosis or edema. NEUROLOGIC: He is alert and oriented x3. He is moving all 4 extremities. Cranial nerves 2-12 intact to exam. LABORATORY DATA: Microbiologic data: Blood cultures x2 from the are pending. Gram stain from the back 1+ gram-positive cocci, 2+ PMNs. Culture is pending. "Back tissue" is growing 1+ gram-positive cocci in clusters, 2+ PMNs. White blood cell count of 19.4, hematocrit 41, platelet count 347, 86% neutrophils, BUN and creatinine 27/1.1. No liver function tests were obtained. No ESR or CRP were obtained. IMAGING: Chest x-ray shows left basilar atelectasis, otherwise clear. Previous MRI done in January shows significant osteoarthritis and spinal stenosis , particularly at L2 from L2-L5. IMPRESSION: 61-year-old male status post L2-L5 laminectomy for spinal stenosis, who now presents with postoperative back infection of abrupt onset. Operative findings notable for epidural abscess. Strongly suspect Staphylococcus aureus, including methicillin-resistant Staphylococcus aureus given Gram stain and clinical presentation. The patient does not have hardware in his lower back. PLAN: 1. Agree with vancomycin pending culture results. Will change dose to 1.25 g q.12 hours, as 1.5 g IV q.12 hours will give too high of a trough. 2. Obtain ESR and CRP. 3. Check liver function tests tomorrow and repeat white blood cell count. 4. Hopefully, the patient will not require an additional washout. 5. Consider MRI if worsens. Thank you very much for consulting Infectious Disease. We will continue to follow this patient with you. /[id number]/MODL MTDD
--- NOTE | 2017-03-16 17:37 | SOAPPROG ---
SOAP Progress Note Assessment/Plan: Assessment: post op day 1, s/p I and D lumbar epidural abscess. Cxs showing Staph Aureus, not MRSA. Pt markedly improved. Appreciate I.D's consult. Await blood cxs, then PICC Plan: OT to help pt shower tomorrow with drain in place and dressing off. Cont IV abx. 03/16/17 17:34 03/16/17 17:37 Subjective: Pt states his leg nerve pain is much better. Incisional pain reasonable. Objective: Vital Signs Temp Pulse Resp BP Pulse Ox 36.6 C 83 14 93/63 L 94 03/16/17 15:36 03/16/17 15:36 03/16/17 15:36 03/16/17 15:36 03/16/17 15:36 Microbiology 03/16/17 23:30 Gram Stain - Final Back - Eswab 03/16/17 23:30 Gram Stain - Final Back - Eswab 03/15/17 23:30 Gram Stain - Final Back - Tissue 03/15/17 23:17 Gram Stain - Final Back - Anaerobic Tube/Swab Laboratory Results 03/16/17 13:15 03/15/17 03/16/17 03/17/17 05:59 05:59 05:59 Intake Total 4914 500 Output Total 1235 455 Balance 3679 45 PT 13.9 SEC (12.0-15.0) 03/15/17 18:30 INR 1.08 (0.83-1.16) 03/15/17 18:30 BLE motor strength 5/5. Marilee's negative x 2. Lumbar wound with mild drainage. Edema much improved. Drain functioning properly. ICD10 Worksheet Patient Problems: Problems Problem Status Onset Wound infection after surgery Acute Back pain Acute Kidney stones Acute PMR (polymyalgia rheumatica) Acute Renal failure Acute Rheumatoid arthritis Acute
--- NOTE | 2017-03-16 22:35 | GOP ---
[f rep st] OPERATIVE REPORT DATE OF OPERATION: 03/15/2017 SURGEON: Faith Dailey MD EVENT COORDINATOR MARKETING AND SALES: Emmett Tarango SA. ANESTHESIA: General endotracheal intubation. ANESTHESIOLOGIST: Diamante Spence DO. PREOPERATIVE DIAGNOSIS: 1. Four weeks status post L2-L5 laminectomy for stenosis and neurogenic claudication. 2. Lumbar wound infection with signs of sepsis. POSTOPERATIVE DIAGNOSIS: 1. Four weeks status post L2-L5 laminectomy for stenosis and neurogenic claudication. 2. Lumbar wound infection with signs of sepsis. PROCEDURE PERFORMED: 1. Incision, irrigation, and debridement of lumbar wound, L2-L5. 2. Placement of Jamar-Palmer drain. FINDINGS: Purulence emanating from the epidural space, L2-3, with obvious abscess. SPECIMENS: Four sets of cultures were taken, 2 superficial and 2 deep to the fascia. Tissue had al so been taken and sent to the lab. ESTIMATED BLOOD LOSS: Approximately 100 cc. INDICATIONS: The patient is a pleasant 61-year-old gentleman well known to my practice. He is 4 we eks status post an L2-L5 laminectomy for stenosis and neurogenic claudication of bilateral lower ext remities. He was doing well when I saw him in the office approximately 4 days ago and the wound had healed with the exception of a very small pinhole sized opening at the proximal aspect, but no sign s of infection. He went to the urgent care today and transferred to the emergency room with fevers, malaise, nausea, increasing wound/spine pain, and significant drainage from his lumbar wound. Upon exam, he had a clear-cut deep lumbar wound infection with obvious purulence, erythema, swelling, an d pain. He was also febrile, tachycardic, hypotensive, and starting to hallucinate slightly. No gu arantees were given in regard to surgical outcome. Potential risks, benefits, possible complication s were thoroughly discussed. DESCRIPTION OF PROCEDURE: After obtaining both written and verbal consent from the patient, he was brought to the operating room where he underwent a general endotracheal intubation. Winslow catheter was placed. No IV antibiotics were given until cultures were obtained. After intubation, patient w as rolled to the prone position on the Bryan table. All 4 extremities were padded well. The face and the eyes were padded per the anesthesiologist. A time-out was performed for the entire operati ng room team, confirming patient's name, date of , planned surgical procedure, including levels and allergies to medications. After a sterile prep and drape, a midline longitudinal posterior incision was made through the previ ous scar at L2-L5. Immediately upon incision, there was purulence from the wound, and this was cult ured x2 for both aerobic and anaerobic cultures. The incision was opened up down to the fascia and once the fascial sutures were incised, there was also purulence deep to the fascia. This also seeme d to be stemming from approximately the L2-3 level. This was cultured as well x2 and sent for stat Gram stain. Under loupe magnification, the wound was completely opened up, and the purulence was tr acked down, specifically to the L2-3 epidural space overlying the dura. It did not appear to involv e bone and not much of the soft tissue was involved either. The L3-4 level was explored. The L4-5 l evel was explored, and neither of these showed purulence. The epidural abscess was evacuated. A Wo odson was then used to palpate proximal, distal, and laterally into the neural foramen to free up th e mild adhesions that had started to form of the dura along the previous laminectomy site. The puru lence tracked slightly laterally to the right, and this was irrigated. Then while taking Gelfoam to protect the dura at all 3 laminotomy sites, 3 L of irrigation mixed with polymyxin and bacitracin w as used to pulse lavage the entire wound, including the epidural space, well taking care to protect the dura and not to cause any harm. The entire wound was thoroughly irrigated. Hemostasis was then obtained with bipolar cautery, thrombin-soaked Gelfoam, and Bovie cautery. Visualization showed no further purulence. A small amount of soft tissue was debrided due to poor viability. Bovie cauter y was then used for hemostasis in this area on the right at L2-3. At this time, a small piece of Ge lfilm was placed over the dura at L2-3, L3-4, and L4-5 to help with hemostasis. A 10 flat Jamar-P ratt drain was placed deep to the fascial layer and sewn in with a 2-0 nylon suture. The wound was closed loosely using a #1 Vicryl in an interrupted fashion in the fascia followed by a 0 Vicryl in t he subcutaneous layers in interrupted and single interrupted 2-0 nylon suture for the skin closure. Betadine was placed over the wound. Sterile dressing was applied. Patient was rolled to the supin e position. Winslow catheter was left in place. Patient was extubated in the operating room, brought to the recovery room in satisfactory condition. DRAINS: One Jamar-Palmer flat #10 placed deep to the fascial layer. COMPLICATIONS: None. POSTOPERATIVE PLAN: IV antibiotics. It should be noted that 1 g of vancomycin was given immediatel y after all cultures had been obtained. Infectious Disease consultation. Follow up with blood cult ures and probable PICC line. Patient will be in the step-down for signs of sepsis also. /[id number]/MODL
[2017-03-16] MEDS ORDERED: VANCOMYCIN 1.25 GM in D5W 250 ML IV SCH (23:00)
[2017-03-17] MEDS: HYDROCODONE/APAP 10/325 TAB PO PRN ×4 (03:29→23:52)
[2017-03-17 04:51] LABS: % IMMATURE GRANULYOCYTES 0.5 % (0.0-1.1); ABSOLUTE IMMATURE GRANULOCYTES 0.07 10^3/uL (0.00-0.10); ADD DIFF? NO; ADD MORPH? NO; ADD SCAN? NO; ATYPICAL LYMPHOCYTE FLAG 0 (0-99); FRAGMENT RBC FLAG 0 (0-99); HEMATOCRIT 34.2 % (40.0-51.0); HEMOGLOBIN 11.1 g/dL (13.7-17.5); LEFT SHIFT FLG 0 (0-99); LIPEMIA HEMOLYSIS FLAG 80 (0-99); MEAN CELL HEMOGLOBIN 30.9 pg (27.9-34.1); MEAN CELL HEMOGLOBIN CONCENTR. 32.5 g/dL (32.4-36.7); MEAN CELL VOLUME 95.3 fL (81.5-99.8); MEAN PLATELET VOLUME 9.8 fL (8.7-11.7); PLATELET CLUMPS FLAG 0 (0-99); PLATELET COUNT 293 10^3/uL (150-400); RED BLOOD CELL COUNT 3.59 10^6/uL (4.40-6.38); RED CELL DISTRIBUTION WIDTH 17.4 % (11.5-15.2)
[2017-03-17 05:06] LABS: ALANINE AMINOTRANSFERASE 31 IU/L (21-72); ALBUMIN 2.6 g/dL (3.5-5.0); ALKALINE PHOSPHATASE 81 IU/L (38-126); ANION GAP 5 mEq/L (8-16); ASPARTATE AMINOTRANSFERASE 14 IU/L (17-59); BILIRUBIN,TOTAL 0.4 mg/dL (0.1-1.4); CALCIUM 8.6 mg/dL (8.5-10.4); CARBON DIOXIDE 26 mEq/l (22-31); CHLORIDE 108 mEq/L (97-110); CREATININE 0.9 mg/dL (0.7-1.3); GLOMERULAR FILTRATION RATE > 60; GLUCOSE 92 mg/dL (70-100); POTASSIUM 4.2 mEq/L (3.5-5.2); SODIUM 139 mEq/L (134-144); TOTAL PROTEIN 5.1 g/dL (6.3-8.2)
[2017-03-17] MEDS ORDERED: METHOTREXATE 2.5 MG TAB PO SCH (09:00)
[2017-03-17] MEDS ORDERED: ceFAZolin 2 GM/DEXTROSE 100 ML IV SCH (10:16)
--- NOTE | 2017-03-17 10:16 | PCMIDPN ---
Assessment/Plan: Assessment/Plan: 1. L2-L3 Post-operative infection with Epidural abscess: s/p I &D -s/p I &D on 03/16/17 -Cx with MSSa -currently on Vancomycin. Will change to Ancef for directive therapy. - blood cx ngtd -Will place picc line. Risks/benefits of picc line reviewed with patient. -Tentative overview of OP therapy,follow up, labs etc reviewed with patient. Will set up tentative OP appt. -Care coordinated with his RN today as well. -REviewed labs/cultures with patient today. -Care reviewed/coordinated with Dr. Wm renae 1.25gm q12- Subjective: Afebrile. Has some itching at back where incision it present. Drain in place with serosanginous drainage. Some bleeding from drain site. Denies sob. Minimal phlegm. Denies abd pain or diarrhea. RIght leg feels better since recent wash out. Denies motor weakness of LE. Objective: Vital Signs Temp Pulse Resp BP Pulse Ox 36.3 C 87 13 116/74 97 03/17/17 08:00 03/17/17 08:00 03/17/17 08:00 03/17/17 08:00 03/17/17 08:00 Microbiology 03/16/17 23:30 Gram Stain - Final Back - Eswab 03/15/17 23:17 Gram Stain - Final Back - Anaerobic Tube/Swab 03/16/17 23:30 Gram Stain - Final Back - Eswab 03/15/17 23:30 Gram Stain - Final Back - Tissue Laboratory Results 03/17/17 04:25 03/17/17 04:25 03/16/17 03/17/17 03/18/17 05:59 05:59 05:59 Intake Total 4914 950 Output Total 1235 485 Balance 3679 465 ESR 35 MM/HR (0-20) H 03/16/17 13:15 C-Reactive Protein 151.0 mg/L (<10.0) H 03/17/17 04:25 - Physical Exam General Appearance: alert, no apparent distress Respiratory: lungs clear Cardiac/Chest: regular rate, rhythm Extremities: No swelling Abdomen: normal bowel sounds, non-tender, soft, No distended Back: other (Incision site intact, with sutures, no erythema. minimal serosanguinous drainage. drain in place with bloody drainage.) Skin: other, No erythema - Time Spent With Patient Time Spent with Patient: greater than 35 minutes Time Spent with Patient: Greater than 35 minutes spent on this patients care, greater than 50% of time spent counseling, educating, and coordinating care regarding the above mentioned plan. ICD10 Worksheet Patient Problems: Problems Problem Status Onset Wound infection after surgery Acute Back pain Acute Kidney stones Acute PMR (polymyalgia rheumatica) Acute Renal failure Acute Rheumatoid arthritis Acute
[2017-03-17] MEDS ORDERED: ALTEPLASE 2 MG VIAL IVP PRN (10:18)
[2017-03-17] MEDS: SENNOSIDES/DOCUSATE SODIUM TAB PO SCH ×2 (10:40→20:45)
[2017-03-17] MEDS: PANTOPRAZOLE SODIUM 40 MG TAB PO SCH ×2 (10:40→20:46)
[2017-03-17] MEDS: ALLOPURINOL 100 MG TAB PO SCH ×2 (10:40→20:46)
[2017-03-17] MEDS: FOLIC ACID 1 MG TAB PO SCH (10:41)
[2017-03-17] MEDS: DULoxetine 30 MG CAP PO SCH (10:41)
[2017-03-17] MEDS: morphINE SR 15 MG TAB PO SCH ×2 (10:41→20:46)
[2017-03-17] MEDS: DULoxetine 60 MG CAP PO SCH (10:41)
[2017-03-17] MEDS: POTASSIUM CITRATE 15 MEQ PO SCH ×3 (10:42→23:53)
[2017-03-17] MEDS: PREGABALIN 150 MG CAP PO SCH ×2 (10:42→20:42)
[2017-03-17 11:48] VITALS: RESP 16
[2017-03-17] MEDS: ceFAZolin 2 GM in D5W 100 ML IV SCH ×3 (12:07→20:54)
--- NOTE | 2017-03-17 15:15 | SOAPPROG ---
SOAP Progress Note Assessment/Plan: Assessment: post op day 1, s/p I and D lumbar epidural abscess. Cxs showing Staph Aureus, not MRSA. Pt markedly improved. Appreciate I.D's consult. Await blood cxs, then PICC Plan: OT to help pt shower tomorrow with drain in place and dressing off. Cont IV abx. 03/16/17 17:34 03/16/17 17:37 03/17/17 15:12 post op day 2, s/p I and D for lumbar epidural abscess. Pt doing much better. MSSA. Pt on Ancef and Picc line placed (blood cxs negative) Plan: Drain removed. Will watch wound carefully over next day or two. Possible D/C to home tomorrow evening if wound looks good. Cont PT and OT. Subjective: Pt states legs feel much better. Itching in both feets bu hypersensitivity gone. Incision pain mildly worse this a.m. Objective: Vital Signs Temp Pulse Resp BP Pulse Ox 36.6 C 83 16 115/76 93 03/17/17 11:45 03/17/17 11:45 03/17/17 11:45 03/17/17 11:45 03/17/17 11:45 Microbiology 03/15/17 23:30 Gram Stain - Final Back - Tissue 03/15/17 23:17 Gram Stain - Final Back - Anaerobic Tube/Swab 03/16/17 23:30 Gram Stain - Final Back - Eswab 03/16/17 23:30 Gram Stain - Final Back - Eswab Laboratory Results 03/17/17 04:25 03/17/17 04:25 03/16/17 03/17/17 03/18/17 05:59 05:59 05:59 Intake Total 4914 950 Output Total 1235 485 Balance 3679 465 PT 13.9 SEC (12.0-15.0) 03/15/17 18:30 INR 1.08 (0.83-1.16) 03/15/17 18:30 Lumbar wound: no erythema. Drain removed in total without difficulty. No purulence. ICD10 Worksheet Patient Problems: Problems Problem Status Onset Wound infection after surgery Acute Back pain Acute Kidney stones Acute PMR (polymyalgia rheumatica) Acute Renal failure Acute Rheumatoid arthritis Acute
[2017-03-17] MEDS ORDERED: BISACODYL 10 MG SUPP PR ONE (19:00)
[2017-03-18 04:51] VITALS: O2SAT 93
[2017-03-18] MEDS: ceFAZolin 2 GM in D5W 100 ML IV SCH (05:26)
[2017-03-18] MEDS: HYDROCODONE/APAP 10/325 TAB PO PRN (05:26)
[2017-03-18 08:25] VITALS: BP 100/64; PULSE 82; TEMP 98.2
[2017-03-18] MEDS: DULoxetine 30 MG CAP PO SCH (09:13)
[2017-03-18] MEDS: DULoxetine 60 MG CAP PO SCH (09:13)
[2017-03-18] MEDS: FOLIC ACID 1 MG TAB PO SCH (09:13)
[2017-03-18] MEDS: SENNOSIDES/DOCUSATE SODIUM TAB PO SCH (09:13)
[2017-03-18] MEDS: PREGABALIN 150 MG CAP PO SCH (09:13)
[2017-03-18] MEDS: PANTOPRAZOLE SODIUM 40 MG TAB PO SCH (09:14)
[2017-03-18] MEDS: morphINE SR 15 MG TAB PO SCH (09:14)
[2017-03-18] MEDS: ALLOPURINOL 100 MG TAB PO SCH (09:14)
--- NOTE | 2017-03-18 12:16 | SOAPPROG ---
SOAP Progress Note Assessment/Plan: Assessment: post op day 1, s/p I and D lumbar epidural abscess. Cxs showing Staph Aureus, not MRSA. Pt markedly improved. Appreciate I.D's consult. Await blood cxs, then PICC Plan: OT to help pt shower tomorrow with drain in place and dressing off. Cont IV abx. 03/16/17 17:34 03/16/17 17:37 03/17/17 15:12 post op day 2, s/p I and D for lumbar epidural abscess. Pt doing much better. MSSA. Pt on Ancef and Picc line placed (blood cxs negative) Plan: Drain removed. Will watch wound carefully over next day or two. Possible D/C to home tomorrow evening if wound looks good. Cont PT and OT. 03/18/17 12:14 Post op day 3, s/p I and D lumbar epidural abscess, s/p L2-5 laminectomy without fusion. Pt doing well overall. Ready for discharge to home. Subjective: Pt states legs feel well. Good appetite. Incisional pain less. Objective: Vital Signs Temp Pulse Resp BP Pulse Ox 36.8 C 82 16 100/64 93 03/18/17 08:24 03/18/17 08:24 03/18/17 08:24 03/18/17 08:24 03/18/17 08:24 Microbiology 03/15/17 23:30 Gram Stain - Final Back - Tissue 03/16/17 23:30 Gram Stain - Final Back - Eswab 03/16/17 23:30 Gram Stain - Final Back - Eswab 03/15/17 23:17 Gram Stain - Final Back - Anaerobic Tube/Swab Laboratory Results 03/17/17 04:25 03/17/17 04:25 03/17/17 03/18/17 03/19/17 05:59 05:59 05:59 Intake Total 950 450 Output Total 485 Balance 465 450 PT 13.9 SEC (12.0-15.0) 03/15/17 18:30 INR 1.08 (0.83-1.16) 03/15/17 18:30 Lumbar wound with mild+ drainage/ serosanguinous. No purulence seen. Less swollen. chana's negative x 2. ICD10 Worksheet Patient Problems: Problems Problem Status Onset Wound infection after surgery Acute Back pain Acute Kidney stones Acute PMR (polymyalgia rheumatica) Acute Renal failure Acute Rheumatoid arthritis Acute
--- NOTE | 2017-03-18 12:30 | PDIAF ---
- Diagnosis Diagnosis: lumbar epidural abscess s/p I and D Code Status: Full Code - Medication Management Discharge Medications: Medications to Continue on Transfer Allopurinol [Allopurinol 100 MG (*)] 100 mg PO BID 01/10/17 [Last Taken 09:00] DULoxetine [Cymbalta 60 MG (*)] 60 mg PO DAILY 01/10/17 [Last Taken 03/15/17] Folic Acid 0.4 mg PO DAILY 01/10/17 [Last Taken 03/15/17] Methotrexate Sodium [Rheumatrex] 12.5 mg PO TU 01/10/17 [Last Taken 02/02/17] Potassium Citrate [Potassium Citrate ER] 15 meq PO TID 01/10/17 [Last Taken 09:00] Silodosin [RAPAFLO] 8 mg PO DAILY 01/10/17 [Last Taken 02/02/17] DULoxetine [Cymbalta 30 MG (*)] 30 mg PO DAILY 02/02/17 [Last Taken 03/15/17] Esomeprazole Mag Trihydrate [Nexium] 40 mg PO BID 02/02/17 [Last Taken 03/15/17 09:00] Pregabalin [Lyrica] 300 mg PO BID 03/15/17 [Last Taken 03/15/17 09:00] Acetaminophen [Tylenol 325mg (*)] 325 - 650 mg PO Q4HRS PRN #0 tab 03/18/17 [ Last Taken Unknown] Allopurinol [Allopurinol 100 MG (*)] 100 mg PO BID #0 tab 03/18/17 [Last Taken Unknown] Alteplase [Cathflo Activase 2 mg (*)] 2 mg IVP PRN PRN #0 vial 03/18/17 [Last Taken Unknown] DULoxetine [Cymbalta 30 MG (*)] 30 mg PO DAILY #0 cap 03/18/17 [Last Taken Unknown] DULoxetine [Cymbalta 60 MG (*)] 60 mg PO DAILY #0 cap 03/18/17 [Last Taken Unknown] Diazepam [Valium 5 MG (*)] 5 mg PO QID PRN #0 tab 03/18/17 [Last Taken Unknown] Diazepam [Valium Injection (*)] 2.5 - 5 mg IVP QID PRN #0 syr 03/18/17 [Last Taken Unknown] Folic Acid [Folic Acid 1 MG (*)] 0.5 mg PO DAILY #0 tab 03/18/17 [Last Taken Unknown] Methotrexate Sodium [Rheumatrex] 12.5 mg PO Tu@0900 #0 tab 03/18/17 [Last Taken Unknown] Pantoprazole Sodium [Protonix 40mg (*)] 40 mg PO BID #0 tab 03/18/17 [Last Taken Unknown] Potassium Citrate [Potassium Citrate ER] 15 meq PO TID 03/18/17 [Last Taken Unknown] Pregabalin [Lyrica 150mg (*)] 300 mg PO BID #0 cap 03/18/17 [Last Taken Unknown] Sennosides/Docusate Sodium [Senokot-S] 1 - 2 tab PO BID #0 tab 03/18/17 [Last Taken Unknown] Silodosin [RAPAFLO] 8 mg PO DAILY 03/18/17 [Last Taken Unknown] ceFAZolin 2 GM/DEXTROSE [Ancef 2 gm (Premix)] 2 gm IV Q8HRS #0 bag 03/18/17 [ Last Taken Unknown] ceFAZolin [Ancef] 2 gm IV Q8HRS #0 vial 03/18/17 [Last Taken Unknown] morphINE SR [Ms Contin/Oramorph 15 mg (*)] 15 mg PO BID #30 tab 03/18/17 [Last Taken Unknown] oxyCODONE/APAP 5/325 [Percocet 5/325 (*)] 1 - 2 tab PO Q4HRS PRN #30 tab [Last Taken Unknown] Fdc Antibiotics: Ancef Discharge Medications: Refer to the Discharge Home Medication list for PRN reason. - Orders Services needed: Registered Nurse Home Care Face to Face: 03/18/17 Diet Recommendation: no restrictions on diet Diet Texture: Regular Texture Diet Morgan Stockings Discontinue Date: approx 03/21/17 Wound Care Instructions: Daily dry dressing change to lumbar wound Activity/Weight Bearing Restrictions: No bending, lifting, twisting. - Follow Up Care Current Providers and Referrals: Hima Stanley MD [Primary Care Provider] - As per Instructions Debbie Abdalla MD [Medical Doctor] - 03/25/17 1:30 pm (f/u DR. Abdalla (Infectious Diseases) at 1:30pm. Check in time: 1:10pm. Thank you. )
--- NOTE | 2017-03-18 12:57 | PCMIDPN ---
Assessment/Plan: Assessment/Plan: 1. L2-L3 Post-operative infection with Epidural abscess: s/p I &D - Hx of recent L2-L5 laminectomy around 4 weeks ago -s/p I &D on 03/16/17 -Cx with [facility] -OnAncef for directive therapy. Plan for at least 6 weeks of therapy - blood cx ngtd -s/p picc line. Risks/benefits of picc line reviewed with patient. -Tentative overview of OP therapy,follow up, labs etc reviewed with patient. -f/u in office 03/25/17 at 1:30pm. -Care coordinated with his RN today as well. -REviewed cultures with patient today. -Care reviewed/coordinated with Dr. Burk -care coordinated with case management. Meds ancef 2g q8- 03/17/17 s/p vanco 1.25gm q12- Subjective: afebrile. feels well. picc line in place. drain pulled yesterday. denies sob, abd pain or diarrhea. Objective: Vital Signs Temp Pulse Resp BP Pulse Ox 36.8 C 82 16 100/64 93 03/18/17 08:24 03/18/17 08:24 03/18/17 08:24 03/18/17 08:24 03/18/17 08:24 Microbiology 03/15/17 23:30 Gram Stain - Final Back - Tissue 03/16/17 23:30 Gram Stain - Final Back - Eswab 03/16/17 23:30 Gram Stain - Final Back - Eswab 03/15/17 23:17 Gram Stain - Final Back - Anaerobic Tube/Swab Laboratory Results 03/17/17 04:25 03/17/17 04:25 03/17/17 03/18/17 03/19/17 05:59 05:59 05:59 Intake Total 950 450 Output Total 485 Balance 465 450 ESR 35 MM/HR (0-20) H 03/16/17 13:15 C-Reactive Protein 151.0 mg/L (<10.0) H 03/17/17 04:25 - Physical Exam General Appearance: alert, no apparent distress Respiratory: lungs clear Cardiac/Chest: regular rate, rhythm Extremities: No swelling Abdomen: normal bowel sounds, non-tender Back: other (brace in place. dressing just changed , i did not take down.) - Time Spent With Patient Time Spent with Patient: greater than 35 minutes Time Spent with Patient: Greater than 35 minutes spent on this patients care, greater than 50% of time spent counseling, educating, and coordinating care regarding the above mentioned plan. ICD10 Worksheet Patient Problems: Problems Problem Status Onset Back pain Acute Kidney stones Acute PMR (polymyalgia rheumatica) Acute Renal failure Acute Rheumatoid arthritis Acute Wound infection after surgery Acute
--- NOTE | 2017-03-18 13:00 | PDIAF ---
- Diagnosis Diagnosis: lumbar epidural abscess s/p I and D Code Status: Full Code - Medication Management Discharge Medications: Medications to Continue on Transfer Allopurinol [Allopurinol 100 MG (*)] 100 mg PO BID 01/10/17 [Last Taken 09:00] DULoxetine [Cymbalta 60 MG (*)] 60 mg PO DAILY 01/10/17 [Last Taken 03/15/17] Folic Acid 0.4 mg PO DAILY 01/10/17 [Last Taken 03/15/17] Methotrexate Sodium [Rheumatrex] 12.5 mg PO TU 01/10/17 [Last Taken 02/02/17] Potassium Citrate [Potassium Citrate ER] 15 meq PO TID 01/10/17 [Last Taken 09:00] Silodosin [RAPAFLO] 8 mg PO DAILY 01/10/17 [Last Taken 02/02/17] DULoxetine [Cymbalta 30 MG (*)] 30 mg PO DAILY 02/02/17 [Last Taken 03/15/17] Esomeprazole Mag Trihydrate [Nexium] 40 mg PO BID 02/02/17 [Last Taken 03/15/17 09:00] Pregabalin [Lyrica] 300 mg PO BID 03/15/17 [Last Taken 03/15/17 09:00] Acetaminophen [Tylenol 325mg (*)] 325 - 650 mg PO Q4HRS PRN #0 tab 03/18/17 [ Last Taken Unknown] Allopurinol [Allopurinol 100 MG (*)] 100 mg PO BID #0 tab 03/18/17 [Last Taken Unknown] Alteplase [Cathflo Activase 2 mg (*)] 2 mg IVP PRN PRN #0 vial 03/18/17 [Last Taken Unknown] DULoxetine [Cymbalta 30 MG (*)] 30 mg PO DAILY #0 cap 03/18/17 [Last Taken Unknown] DULoxetine [Cymbalta 60 MG (*)] 60 mg PO DAILY #0 cap 03/18/17 [Last Taken Unknown] Diazepam [Valium 5 MG (*)] 5 mg PO QID PRN #0 tab 03/18/17 [Last Taken Unknown] Diazepam [Valium Injection (*)] 2.5 - 5 mg IVP QID PRN #0 syr 03/18/17 [Last Taken Unknown] Folic Acid [Folic Acid 1 MG (*)] 0.5 mg PO DAILY #0 tab 03/18/17 [Last Taken Unknown] Methotrexate Sodium [Rheumatrex] 12.5 mg PO Tu@0900 #0 tab 03/18/17 [Last Taken Unknown] Pantoprazole Sodium [Protonix 40mg (*)] 40 mg PO BID #0 tab 03/18/17 [Last Taken Unknown] Potassium Citrate [Potassium Citrate ER] 15 meq PO TID 03/18/17 [Last Taken Unknown] Pregabalin [Lyrica 150mg (*)] 300 mg PO BID #0 cap 03/18/17 [Last Taken Unknown] Sennosides/Docusate Sodium [Senokot-S] 1 - 2 tab PO BID #0 tab 03/18/17 [Last Taken Unknown] Silodosin [RAPAFLO] 8 mg PO DAILY 03/18/17 [Last Taken Unknown] ceFAZolin 2 GM/DEXTROSE [Ancef 2 gm (Premix)] 2 gm IV Q8HRS #0 bag 03/18/17 [ Last Taken Unknown] ceFAZolin [Ancef] 2 gm IV Q8HRS #0 vial 03/18/17 [Last Taken Unknown] morphINE SR [Ms Contin/Oramorph 15 mg (*)] 15 mg PO BID #30 tab 03/18/17 [Last Taken Unknown] oxyCODONE/APAP 5/325 [Percocet 5/325 (*)] 1 - 2 tab PO Q4HRS PRN #30 tab [Last Taken Unknown] Jail Antibiotics: Ancef 6gm IV continuous infusion over 24 hours daily 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 PICC Care - Routine: Yes - Orders Services needed: Registered Nurse Diet Recommendation: no restrictions on diet Diet Texture: Regular Texture Diet Morgan Stockings Discontinue Date: approx 03/21/17 Wound Care Instructions: Daily dry dressing change to lumbar wound Activity/Weight Bearing Restrictions: No bending, lifting, twisting. - Labs/Radiology CBC Date: 03/23/17 (qmond) CMP Date: 03/23/17 (q mondays) CRP Date: 03/23/17 (q mondays) Call or Fax Lab and Imaging Results to: Dr. Abdalla- [phone] - Follow Up Care Current Providers and Referrals: Hima Stanley MD [Primary Care Provider] - As per Instructions Debbie Abdalla MD [Medical Doctor] - 03/25/17 1:30 pm (f/u DR. Abdalla (Infectious Diseases) at 1:30pm. Check in time: 1:10pm. Thank you. )
[2017-03-18] MEDS: POTASSIUM CITRATE 15 MEQ PO SCH (13:01)
--- NOTE | 2017-03-18 13:12 | GDS ---
[f rep st] DISCHARGE SUMMARY HOSPITAL COURSE: The patient is a pleasant 61-year-old gentleman who is 4 weeks status post an L2-L 5 partial laminectomy for spinal stenosis and neurogenic claudication. The patient had been doing w ell up until about 2 days prior to admission. He developed wound pain, drainage from the wound, fev ers, nausea, and was seen in urgent care and transferred to the emergency room. Upon admission, I w as consulted. I saw the patient in the emergency room, and the wound had an obvious infection with purulence and dehiscence proximally, extreme tenderness, fever, increased warmth, and nausea, as wel l as some early hallucinations. His white count was significantly elevated, and he was brought to [facility] operating room, as he had been n.p.o. for about 8 hours. He underwent an incision, irrigation an d debridement of the lumbar wound. Findings at the time of the surgery included purulence in the ep idural space consistent with an epidural abscess, mainly at L2-3 and slightly off to the right. The wound was thoroughly irrigated and debrided, and a drain was placed. Cultures grew out methicillin sensitive Staph aureus, which was sensitive to Ancef. Infectious Disease was consulted and recommended following his cultures, as well as blood cultures, and then a PICC line, and continued on vancomycin early on, but then changed to Ancef 2 g every 8 ho urs. Patient did undergo a PICC line safely and without difficulty. The patient has improved significantly and his leg pain preoperatively that he had resolved after th is surgery. The drain was removed on postoperative day 2. On postoperative day 3, the wound was ch ecked and there was some mild serosanguineous drainage, but no real purulence. He was doing well an d had been afebrile. The wound had improved significantly. Patient is being discharged to home in satisfactory condition. He does have a followup appointment in my office for a wound check on March 30 at 11:30. He is to wear his back brace at all times, except for showers. He is to shower juli y with his brace and dressing off. He will be set up for home health IV nursing upon discharge. Th e patient needs to avoid bending, lifting, twisting. Prescriptions were given for Percocet, MS Cont in and Valium. Patient knows to call my office immediately or go to the nearest emergency room if h e feels that there are any concerns or potential further complications. Otherwise, he has done well . The patient is to call the Infectious Disease office to make a followup appointment with Dr. Abdalla as well. /[id number]/MODL
[2017-03-18] MEDS ORDERED: ceFAZolin 2 GM/DEXTROSE 100 ML IV SCH (22:00)
== END 2017-03-18 13:41 | disposition home health service (06) | DRG 856 ==
LOC: F2N 03-16 01:39 → F3N 03-16 18:31
PROVIDERS: ADMIT Orthopaedic Surgery Orthopaedic Surgery of the Spine; ATTEND Orthopaedic Surgery Orthopaedic Surgery of the Spine
PROC: 0JB70ZZ Excision of Back Subcutaneous Tissue and Fascia, Open Approach (ICD-10-PCS; principal; 2017-03-15 22:40)
PROC: 0J9700Z Drainage of Back Subcutaneous Tissue and Fascia with Drainage Device, Open Approach (ICD-10-PCS; principal; 2017-03-15 22:40)
PROC: 02HV33Z Insertion of Infusion Device into Superior Vena Cava, Percutaneous Approach (ICD-10-PCS; 2017-03-17)
DX: T81.4XXA Infection following a procedure, initial encounter (principal); G06.2 Extradural and subdural abscess, unspecified; M35.00 Sjogren syndrome, unspecified; M06.9 Rheumatoid arthritis, unspecified; B95.61 Methicillin susceptible Staphylococcus aureus infection as the cause of diseases classified elsewhere; Z16.29 Resistance to other single specified antibiotic
CPT/HCPCS: 97116-GP; 97161-GP; 97165-GO; 97535-GO; C1751; J0690; J1100; J1885; J2250; J2370; J2405; J2704; J2710; J3010; J3370

== ENCOUNTER → 2017-06-09 | Outpatient (CLI) | payer OTHER ==
[~2017-06-09] MED LIST: GADOBUTROL 10 ML VIAL IVP ONE
== END ==
LOC: FIMAGING 15:30
PROVIDERS: ATTEND Urology
DX: N40.0 Benign prostatic hyperplasia without lower urinary tract symptoms (principal)
CPT/HCPCS: A9585

== ENCOUNTER → 2017-09-07 | Outpatient (CLI) | payer OTHER | LOC: BMCIMAGING 10:44 | PROVIDERS: ATTEND Orthopaedic Surgery Hand Surgery | DX: M19.041 Primary osteoarthritis, right hand (principal) ==

== ENCOUNTER → 2017-11-04 | Outpatient (CLI) | payer OTHER | LOC: FIMAGING 19:22 | PROVIDERS: ATTEND Internal Medicine | DX: R51 Headache (principal); R93.0 Abnormal findings on diagnostic imaging of skull and head, not elsewhere classified ==

== ENCOUNTER → 2017-11-11 | Outpatient (CLI) | payer OTHER | LOC: FIMAGING 16:55 | PROVIDERS: ATTEND Internal Medicine | DX: G93.9 Disorder of brain, unspecified (principal); J01.00 Acute maxillary sinusitis, unspecified | CPT/HCPCS: A9585 ==